=== PATIENT | female | born 1945 | race Caucasian/White ===

== ENCOUNTER 2022-04-10 08:20 | Outpatient (CLI) | payer OTHER ==
[~2022-04-10 08:20] MED LIST: NEURONTIN300 MG PO
== END 2022-04-10 08:21 | disposition home or self-care (01) ==
LOC: LAB 08:20
PROVIDERS: ATTEND Internal Medicine Hematology & Oncology
DX: D50.8 Other iron deficiency anemias (principal); I10 Essential (primary) hypertension; R74.02 Elevation of levels of lactic acid dehydrogenase [LDH]; K76.89 Other specified diseases of liver; D63.8 Anemia in other chronic diseases classified elsewhere; D51.1 Vitamin B12 deficiency anemia due to selective vitamin B12 malabsorption with proteinuria; D51.0 Vitamin B12 deficiency anemia due to intrinsic factor deficiency; D63.1 Anemia in chronic kidney disease; E06.3 Autoimmune thyroiditis; C50.919 Malignant neoplasm of unspecified site of unspecified female breast; R97.8 Other abnormal tumor markers; C56.9 Malignant neoplasm of unspecified ovary; R97.0 Elevated carcinoembryonic antigen [CEA]; E72.11 Homocystinuria; E72.12 Methylenetetrahydrofolate reductase deficiency; D51.3 Other dietary vitamin B12 deficiency anemia; D50.0 Iron deficiency anemia secondary to blood loss (chronic); E03.8 Other specified hypothyroidism; J32.8 Other chronic sinusitis; J45.998 Other asthma

== ENCOUNTER → 2022-12-18 11:06 | Outpatient (CLI) | payer OTHER | END | disposition home or self-care (01) | LOC: LAB 11:06 | PROVIDERS: ATTEND Internal Medicine Hematology & Oncology | DX: D68.61 Antiphospholipid syndrome (principal); E72.12 Methylenetetrahydrofolate reductase deficiency; D51.3 Other dietary vitamin B12 deficiency anemia; D50.8 Other iron deficiency anemias; I10 Essential (primary) hypertension; D03.8 Melanoma in situ of other sites; E06.3 Autoimmune thyroiditis; J45.998 Other asthma; J32.8 Other chronic sinusitis; R74.02 Elevation of levels of lactic acid dehydrogenase [LDH]; K76.89 Other specified diseases of liver; D47.2 Monoclonal gammopathy; C90.00 Multiple myeloma not having achieved remission; D63.8 Anemia in other chronic diseases classified elsewhere ==

== ENCOUNTER → 2022-12-22 07:30 | Outpatient (CLI) | payer OTHER | END | disposition home or self-care (01) | LOC: LAB 07:30 | PROVIDERS: ATTEND Internal Medicine Hematology & Oncology | DX: D68.61 Antiphospholipid syndrome (principal); E72.12 Methylenetetrahydrofolate reductase deficiency; D51.3 Other dietary vitamin B12 deficiency anemia; I10 Essential (primary) hypertension; E03.8 Other specified hypothyroidism; E06.3 Autoimmune thyroiditis; J45.998 Other asthma; J32.8 Other chronic sinusitis ==

== ENCOUNTER → 2023-04-11 11:35 | Outpatient (CLI) | payer OTHER | END | disposition home or self-care (01) | LOC: LAB 11:35 | PROVIDERS: ATTEND Internal Medicine Hematology & Oncology | DX: D50.8 Other iron deficiency anemias (principal); N39.9 Disorder of urinary system, unspecified; R94.4 Abnormal results of kidney function studies; E72.11 Homocystinuria; E72.12 Methylenetetrahydrofolate reductase deficiency; D51.3 Other dietary vitamin B12 deficiency anemia; E03.8 Other specified hypothyroidism; E06.3 Autoimmune thyroiditis; J45.998 Other asthma; J32.8 Other chronic sinusitis; D63.1 Anemia in chronic kidney disease; N18.30 Chronic kidney disease, stage 3 unspecified ==

== ENCOUNTER → 2023-08-07 10:35 | Outpatient (CLI) | payer OTHER | END | disposition home or self-care (01) | LOC: LAB 10:35 | PROVIDERS: ATTEND Internal Medicine Hematology & Oncology | DX: D50.8 Other iron deficiency anemias (principal); R79.9 Abnormal finding of blood chemistry, unspecified; R74.02 Elevation of levels of lactic acid dehydrogenase [LDH]; K76.89 Other specified diseases of liver; D63.1 Anemia in chronic kidney disease; D68.61 Antiphospholipid syndrome; D51.3 Other dietary vitamin B12 deficiency anemia; E03.8 Other specified hypothyroidism; J45.998 Other asthma; J32.8 Other chronic sinusitis; N18.30 Chronic kidney disease, stage 3 unspecified; R80.9 Proteinuria, unspecified ==

== ENCOUNTER → 2024-06-23 08:13 | Outpatient (CLI) | payer OTHER ==
[2024-06-23 09:41] LABS: HEMATOCRIT 31.1 % (36.0-45.00); HEMOGLOBIN 10.6 g/dL (12.0-15.00); MEAN CELL VOLUME 99.4 fL (80.00-100.00); MEAN CORPUSCULAR HEMOGLOBIN 33.7 pg (27.00-32.0); PLATELET COUNT 270 K/uL (150-450); RED BLOOD COUNT 3.13 M/uL (4.00-6.00); RED CELL DISTRIBUTION WIDTH 13.7 % (11.5-14.5)
[2024-06-23 10:25] LABS: PH,URINE 5.5 (5.0-8.0); URINE BILIRRUBIN Negative (NEGATIVE); URINE BLOOD Moderate; URINE COLOR Yellow; URINE GLUCOSE Negative (NEGATIVE); URINE KETONE Negative (NEGATIVE); URINE LEUKOCYTE Negative; URINE NITRATE Negative; URINE PROTEIN Negative (NEGATIVE); URINE UROBILINOGEN 0.2 E.U./dl
[2024-06-23 10:27] LABS: URINE RBC 54.3 uL (0.0-20.8); URINE WBC 1.8 uL (0.0-23.2)
[2024-06-23 10:31] LABS: URINE APPEARANCE CLEAR; URINE BACTERIA 3.7 uL (0.0-1933); URINE CAST 0.15 uL (0.0-1.40); URINE EPITHELIAL CELLS 0.4 uL (0.0-38.8)
[2024-06-23 11:35] LABS: URIC ACID 4.4 mg/dL (2.5-7.5)
[2024-06-23 11:41] LABS: ALBUMIN 3.9 gm/dL (3.4-5.0); BILIRUBIN TOTAL 0.33 mg/dL (0.3-1.2); CALCIUM 8.5 mg/dL (8.5-10.1); CHOL HDL RATIO 2.2 (0-5.0); CREATININE SERUM 0.86 mg/dL (0.55-1.02); FERRITIN 102.1 NG/ML (8-252); GFR 64.15; GLOBULINA 3.4 G/DL (2.4-3.5); PHOSPHOROUS 2.5 mg/dL (2.5-4.9); POTASSIUM 3.93 mEq/L (3.5-5.1); TOTAL PROTEIN 7.3 gm/dL (6.4-8.2); TSH 2.9 uIU/mL (0.358-3.74)
[2024-06-23 12:15] LABS: MANUAL PLATELET COUNT 496; PLATELET ESTIMATE INCREASED (NORMAL)
[2024-06-23 14:35] LABS: FOLIC ACID > 20.00 ng/ml (4.78-20); VITAMIN D3 25 HYDROXY 89.49 ng/ml (30-120)
[2024-06-24 09:10] LABS: HOMOCYSTEINE 7.2 umol/L (0.0-19.2)
[2024-06-24 17:06] LABS: ERYTHROPOIETIN 8.1 mIU/mL (2.6-18.5)
[2024-06-27 23:31] LABS: PROTEIN S ACTIVITY 74 % (63-140); Protein s 72 % (60-150); Protein s free 90 % (61-136); dRVVT 34.8 sec (0.0-47.0); interp Comment: (.); ptt-la 35.4 sec (0.0-43.5)
== END | disposition home or self-care (01) ==
LOC: LAB 08:13
PROVIDERS: ATTEND Internal Medicine Hematology & Oncology
DX: D68.61 Antiphospholipid syndrome (principal); D51.3 Other dietary vitamin B12 deficiency anemia; D50.8 Other iron deficiency anemias; I10 Essential (primary) hypertension; E03.8 Other specified hypothyroidism; E06.3 Autoimmune thyroiditis; J45.998 Other asthma; J32.8 Other chronic sinusitis; D63.1 Anemia in chronic kidney disease; N18.30 Chronic kidney disease, stage 3 unspecified; R80.9 Proteinuria, unspecified; M15.0 Primary generalized (osteo)arthritis; R73.03 Prediabetes; E78.5 Hyperlipidemia, unspecified; Z00.01 Encounter for general adult medical examination with abnormal findings; Z12.11 Encounter for screening for malignant neoplasm of colon; D51.9 Vitamin B12 deficiency anemia, unspecified; E55.9 Vitamin D deficiency, unspecified

== ENCOUNTER 2024-07-04 14:23 | Outpatient (CLI) | payer OTHER ==
[2024-07-04 14:52] LABS: ob POSITIVE (NEGATIVE)
== END 2024-07-04 14:26 | disposition home or self-care (01) ==
LOC: LAB 14:23
DX: M15.0 Primary generalized (osteo)arthritis (principal); I10 Essential (primary) hypertension; R73.03 Prediabetes; E78.5 Hyperlipidemia, unspecified; Z00.01 Encounter for general adult medical examination with abnormal findings; Z12.11 Encounter for screening for malignant neoplasm of colon; D51.9 Vitamin B12 deficiency anemia, unspecified; E55.9 Vitamin D deficiency, unspecified